=== PATIENT | female | born 2000 | race Two or more races ===

== ENCOUNTER 2019-01-22 16:37 | Emergency (ER) | payer OTHER ==
[~2019-01-22] VITALS: Ht 152.4 cm; Wt 45.4 kg
[2019-01-22 17:37] VITALS: BP 124/70
== END 2019-01-22 18:10 | disposition home or self-care (01) ==
LOC: EDBD 16:37 → ER 16:37
DX: S16.1XXA Strain of muscle, fascia and tendon at neck level, initial encounter (principal); S40.812A Abrasion of left upper arm, initial encounter; V43.52XA Car driver injured in collision with other type car in traffic accident, initial encounter; Y93.89 Activity, other specified; Y99.8 Other external cause status; Y92.410 Unspecified street and highway as the place of occurrence of the external cause